=== PATIENT | female | born 1980 | race African-American/Black ===

== ENCOUNTER 2017-11-07 14:01 | Emergency (ER) | payer MEDICAID ==
[~2017-11-07] VITALS: Ht 177.8 cm; Wt 146.5 kg
[2017-11-07 14:06] VITALS: Ht 177.8 cm; Wt 146.5 kg
[2017-11-07 15:32] VITALS: BP 150/91
== END 2017-11-07 15:32 | disposition home or self-care (01) ==
LOC: ED 14:01
DX: L03.012 Cellulitis of left finger (principal)

== ENCOUNTER 2017-11-11 12:20 | Emergency (ER) | payer MEDICAID ==
[~2017-11-11] VITALS: Ht 177.8 cm; Wt 145.6 kg
[2017-11-11 12:26] VITALS: BP 161/94; Ht 177.8 cm; Wt 145.6 kg
== END 2017-11-11 14:00 | disposition home or self-care (01) ==
LOC: ED 12:20
DX: L03.012 Cellulitis of left finger (principal); J45.909 Unspecified asthma, uncomplicated; E11.9 Type 2 diabetes mellitus without complications

== ENCOUNTER 2017-11-14 11:40 | Emergency (ER) | payer MEDICAID ==
[~2017-11-14] VITALS: Ht 175.3 cm; Wt 144.7 kg
[2017-11-14 12:09] VITALS: Ht 175.3 cm; Wt 144.7 kg
[2017-11-14 13:04] VITALS: BP 140/90
== END 2017-11-14 13:04 | disposition home or self-care (01) ==
LOC: ED 11:40
DX: M79.645 Pain in left finger(s) (principal); M79.89 Other specified soft tissue disorders; Z48.01 Encounter for change or removal of surgical wound dressing; J45.909 Unspecified asthma, uncomplicated; E11.9 Type 2 diabetes mellitus without complications

== ENCOUNTER 2018-02-08 13:59 | Emergency (ER) | payer MEDICAID ==
[~2018-02-08] VITALS: Ht 177.8 cm; Wt 148.3 kg
[2018-02-08 14:03] VITALS: Ht 177.8 cm; Wt 148.3 kg
[2018-02-08 15:38] VITALS: BP 171/86
== END 2018-02-08 15:09 | disposition home or self-care (01) ==
LOC: ED 13:59
DX: S56.115A Strain of flexor muscle, fascia and tendon of right ring finger at forearm level, initial encounter (principal); I10 Essential (primary) hypertension; E11.9 Type 2 diabetes mellitus without complications; W22.8XXA Striking against or struck by other objects, initial encounter; Y93.89 Activity, other specified; Y92.89 Other specified places as the place of occurrence of the external cause; Y99.8 Other external cause status
CPT/HCPCS: A4570

== ENCOUNTER 2018-11-11 20:20 | Emergency (ER) | payer MEDICAID ==
[~2018-11-11] VITALS: Ht 177.8 cm; Wt 147.0 kg
[2018-11-11 20:37] VITALS: BP 162/104; Ht 177.8 cm; Wt 147.0 kg
[2018-11-11 22:52] LABS: UA SPECIFIC GRAVITY >=1.030 (1.005-1.035); microscopic required? YES; urine erythrocyte NEGATIVE (NEGATIVE)
== END 2018-11-11 22:56 | disposition home or self-care (01) ==
LOC: ED 20:20
PROVIDERS: Specialist
DX: N76.0 Acute vaginitis (principal); A59.01 Trichomonal vulvovaginitis; N39.0 Urinary tract infection, site not specified; E11.9 Type 2 diabetes mellitus without complications; J45.909 Unspecified asthma, uncomplicated
CPT/HCPCS: 87491; 87591; J0696